=== PATIENT | female | born 1950 | race African-American/Black ===

== ENCOUNTER 2025-01-25 00:33 | Inpatient (IN) | payer MEDICARE, MEDICAID ==
[2025-01-25] VITALS (18 sets, daily range): BP systolic 129–187; BP diastolic 65–111; PULSE 82–101; RESP 11–23; TEMP 36.8–37.2; O2SAT 96–99
[~2025-01-25] VITALS: Ht 162.6 cm; Wt 149.4 kg
[2025-01-25] MEDS: ALBUTEROL (0.083%) 2.5MG/3ML NEB HHN SCH (00:46)
[2025-01-25] MEDS: IPRATROPIUM BROMIDE (0.02%) 0.5MG/2.5ML NEB HHN SCH (00:46)
[2025-01-25 00:58] LABS: BASOPHILS % 1.8 % (0.0-2.0); EOSINOPHILS % 4.1 % (0.0-5.0); HEMATOCRIT. 34.4 % (36.0-48.0); HEMOGLOBIN. 11.0 g/dL (12.0-16.0); LYMPHOCYTES % 60.2 % (20.0-50.0); MEAN PLATELET VOLUME 9.6 fl (7.4-10.4); MONOCYTES % 8.1 % (2.0-8.0); NEUTROPHILS % 25.8 % (40.0-76.0); PLATELET 301 x1000/uL (130-400); RED BLOOD CELL COUNT 4.34 mill/uL (4.2-5.4); RED CELL DISTRIBUTION WIDTH 15.9 % (11.6-14.6)
[2025-01-25 01:10] LABS: BG BASE EXCESS -4.9 mmol/L (-2.0-3.0); BG CARBOXYHEMOGLOBIN 0.1 % (0.5-1.5); BG DEOXYHEMOGLOBIN 0.3 % (0.0-5.0); BG FRACTION INSPIRED OXYGEN 40; BG HCO3 ACT 23.0 mmol/L (21.0-28.0); BG METHEMOGLOBIN 0.3 % (0.5-1.5); BG OXYGEN SATURATION 99.7 % (94.0-98.0); BG OXYHEMOGLOBIN 99.3 % (94.0-98.0); BG PCO2 56.4 mmHg (32.0-45.0); BG PH 7.229 (7.350-7.450); BG PO2 262.5 mmHg (83.0-108.0); BG SAMPLE SITE RIGHT RADIAL; BG TOTAL HEMOGLOBIN 11.3 g/dL (12.0-16.0); BG VENT MODE MASK - BIPAP; BG VENT RATE 16.0 set
[2025-01-25 01:15] LABS: CREATININE 1.8 mg/dL (0.6-1.0); ETHANOL BLOOD < 10 mg/dL (<10); UREA NITROGEN BLOOD 18 mg/dL (9-23)
[2025-01-25 01:17] LABS: ASPARTATE AMINOTRANSFERASE 28 IU/L (<34); BILIRUBIN DIRECT 0.1 mg/dL (<=3.0); BILIRUBIN TOTAL 0.3 mg/dL (0.1-1.0); PROTEIN TOTAL 7.4 g/dL (6.0-8.3); TROPONIN I HIGH SENSITIVITY 172 ng/L (3.0-34)
[2025-01-25] MEDS: METHYLPREDNISOLONE SOD SUCC 125MG/2ML (ACT-O-VIAL) IV ONE (01:23)
[2025-01-25] MEDS: MAGNESIUM 2 G PREMIX 50 ML IV ONE (01:23)
[2025-01-25] MEDS: SODIUM CHLORIDE 0.9% 1,000 ML IV ONE (01:23)
[2025-01-25 01:35] LABS: INR 0.9
[2025-01-25] MEDS ORDERED: ONDANSETRON HCL 4MG/2ML INJ IV PRN (03:15)
[2025-01-25] MEDS ORDERED: ACETAMINOPHEN 325MG TABLET PO PRN (03:15)
[2025-01-25] MEDS ORDERED: IPRATROPIUM/ALBUTEROL 0.5-3(2.5)MG/3ML NEB HHN PRN (03:15)
[2025-01-25] MEDS ORDERED: DOCUSATE SODIUM 100MG CAPSULE PO PRN (03:15)
[2025-01-25] MEDS: HYDRALAZINE 20MG/ML VIAL IV NR (03:24)
[2025-01-25] MEDS: SODIUM CHLORIDE 0.45% 1,000 ML IV SCH (03:35)
[2025-01-25] MEDS ORDERED: CLON0.1T PO (04:16)
[2025-01-25] MEDS ORDERED: CARV3.1242 PO (04:16)
[2025-01-25] MEDS: CLONIDINE 0.1MG TABLET PO PRN (05:42)
[2025-01-25] MEDS: IPRATROPIUM/ALBUTEROL 0.5-3(2.5)MG/3ML NEB HHN SCH (08:09)
[2025-01-25] MEDS: PANTOPRAZOLE 40MG DR TABLET PO SCH (08:55)
[2025-01-25] MEDS: CLONIDINE 0.1MG TABLET PO SCH (08:56)
[2025-01-25] MEDS: AMLODIPINE 10MG TABLET PO SCH (08:56)
[2025-01-25 09:45] LABS: TROPONIN I HIGH SENSITIVITY 217 ng/L (3.0-34)
[2025-01-25 09:48] LABS: FOLIC ACID (FOLATE) SERUM 13.96 ng/mL (>5.38)
[2025-01-25 09:49] LABS: VITAMIN B12 SERUM 601 pg/mL (211-911)
[2025-01-25] MEDS ORDERED: HYDRALAZINE 20MG/ML VIAL IV SCH (12:00)
[2025-01-25] MEDS: FUROSEMIDE 40MG/4ML VIAL IVP SCH (12:22)
[2025-01-25] MEDS: HYDRALAZINE HCL 50MG TABLET PO SCH ×2 (12:22→14:18)
[2025-01-25] MEDS ORDERED: HYDRALAZINE HCL 100MG TABLET PO SCH (14:00)
[2025-01-25] MEDS: FERROUS SULFATE 325MG TABLET PO SCH (14:18)
[2025-01-25 17:32] LABS: CLARITY URINE CLEAR (CLEAR); COLOR URINE YELLOW (YELLOW); GLUCOSE URINE NEGATIVE (NEGATIVE); KETONES URINE NEGATIVE (NEGATIVE); LEUKOCYTE ESTERASE URINE NEGATIVE (NEGATIVE); NITRITE URINE NEGATIVE (NEGATIVE); OCCULT BLOOD URINE NEGATIVE (NEGATIVE); PH URINE 5.5 (4.5-8.0); PROTEIN URINE NEGATIVE (NEGATIVE); SPECIFIC GRAVITY URINE 1.007 (1.005-1.030); UROBILINOGEN URINE 0.2 E.U./dL (0.2-1.0)
[2025-01-25 17:48] LABS: *AMPHETAMINES SCREEN URINE NEGATIVE (NEGATIVE); *BARBITURATES SCREEN URINE NEGATIVE (NEGATIVE); *BENZODIAZEPINES SCREEN URINE NEGATIVE (NEGATIVE); *COCAINE SCREEN URINE NEGATIVE (NEGATIVE); CANNABINOID URINE SCREEN NEGATIVE (NEGATIVE); METHADONE URINE SCREEN NEGATIVE (NEGATIVE); OPIATES URINE SCREEN NEGATIVE (NEGATIVE); PHENCYCLIDINE URINE SCREEN NEGATIVE (NEGATIVE)
[2025-01-25 17:49] LABS: ECSTASY MDMA SCREEN URINE NEGATIVE (NEGATIVE)
[2025-01-25] MEDS: METHYLPREDNISOLONE SOD SUCC 125MG/2ML (ACT-O-VIAL) IV SCH (21:30)
[2025-01-26] VITALS (12 sets, daily range): BP systolic 152–185; BP diastolic 67–95; PULSE 85–114; RESP 15–22; TEMP 36.6–37.1; O2SAT 94–98
[2025-01-26] MEDS ORDERED: METHYLPREDNISOLONE SOD SUCC 40MG/ML (ACT-O-VIAL) IV SCH (01:00)
[2025-01-26] MEDS: GUAIFENESIN 200MG/10ML SUGAR FREE UDC PO PRN (03:32)
[2025-01-26] MEDS: ACETAMINOPHEN 325MG TABLET PO PRN (10:04)
[2025-01-26] MEDS: HYDRALAZINE 20MG/ML VIAL IV PRN (10:05)
[2025-01-26 10:58] LABS: HEMATOCRIT. 34.8 % (36.0-48.0); HEMOGLOBIN. 10.9 g/dL (12.0-16.0); RED BLOOD CELL COUNT 4.39 mill/uL (4.2-5.4); RED CELL DISTRIBUTION WIDTH 15.8 % (11.6-14.6)
[2025-01-26 11:24] LABS: *AMPHETAMINES SCREEN URINE NEGATIVE (NEGATIVE)
[2025-01-26 11:25] LABS: *BARBITURATES SCREEN URINE NEGATIVE (NEGATIVE); *BENZODIAZEPINES SCREEN URINE NEGATIVE (NEGATIVE); *COCAINE SCREEN URINE NEGATIVE (NEGATIVE); CANNABINOID URINE SCREEN NEGATIVE (NEGATIVE); ECSTASY MDMA SCREEN URINE NEGATIVE (NEGATIVE); METHADONE URINE SCREEN NEGATIVE (NEGATIVE); OPIATES URINE SCREEN NEGATIVE (NEGATIVE); PHENCYCLIDINE URINE SCREEN NEGATIVE (NEGATIVE)
[2025-01-26 11:27] LABS: TRIGLYCERIDE 69.0 mg/dL (0-150)
[2025-01-26 11:28] LABS: LDL CHOLESTEROL 157.0 mg/dL (5-100)
[2025-01-26 11:31] LABS: T4 FREE 0.95 ng/dL (0.89-1.76)
[2025-01-26 12:05] LABS: BAND% 12.0 % (1.0-6.0); LYMPHOCYTES % MANUAL 15.0 % (20.0-60.0); MONOCYTES % MANUAL 1.0 % (2.0-8.0); NEUTROPHILS % MANUAL 72.0 % (45.0-75.0)
[2025-01-26 12:06] LABS: PLATELET ESTIMATE NORMAL
[2025-01-26 12:07] LABS: PLATELET 256 x1000/uL (130-400)
[2025-01-26] MEDS: HYDRALAZINE HCL 25MG TABLET PO SCH (13:24)
[2025-01-26] MEDS ORDERED: CEFTRIAXONE 1GM/50ML 50 ML IV SCH (15:30)
[2025-01-26] MEDS: PANTOPRAZOLE SODIUM 40 MG/VIAL IV ONE (16:14)
[2025-01-26] MEDS: FUROSEMIDE 40MG/4ML VIAL IVP SCH (16:14)
[2025-01-26] MEDS: ENOXAPARIN 40MG/0.4ML SYR SUBCUT SCH (16:15)
[2025-01-26] MEDS ORDERED: AZITHROMYCIN 500MG/250ML 250 ML IV SCH (16:30)
[2025-01-26] MEDS: CEFTRIAXONE 1GM/50ML 50 ML IV SCH (18:28)
[2025-01-26 18:56] LABS: HEMATOCRIT. 34.1 % (36.0-48.0); HEMOGLOBIN. 11.1 g/dL (12.0-16.0); MEAN PLATELET VOLUME 8.9 fl (7.4-10.4); PLATELET 291 x1000/uL (130-400); RED BLOOD CELL COUNT 4.43 mill/uL (4.2-5.4); RED CELL DISTRIBUTION WIDTH 15.2 % (11.6-14.6)
[2025-01-26 19:12] LABS: CREATININE 1.9 mg/dL (0.6-1.0); UREA NITROGEN BLOOD 31.0 mg/dL (9-23)
[2025-01-26 19:16] LABS: TROPONIN I HIGH SENSITIVITY 211.0 ng/L (3.0-34)
[2025-01-26] MEDS: AZITHROMYCIN 500MG/250ML 250 ML IV SCH (20:01)
[2025-01-26 20:20] LABS: BAND% 2.0 % (1.0-6.0); LYMPHOCYTES % MANUAL 14.0 % (20.0-60.0); MONOCYTES % MANUAL 1.0 % (2.0-8.0); NEUTROPHILS % MANUAL 83.0 % (45.0-75.0); PLATELET ESTIMATE NORMAL
[2025-01-26] MEDS: PANTOPRAZOLE SODIUM 40 MG/VIAL IV SCH (21:00)
[2025-01-26 22:16] LABS: TROPONIN I HIGH SENSITIVITY 227 ng/L (3.0-34)
[2025-01-27] VITALS (13 sets, daily range): BP systolic 100–182; BP diastolic 51–100; PULSE 87–113; RESP 14–22; TEMP 36.4–37.2; O2SAT 93–99
[2025-01-27 07:04] LABS: BASOPHILS % 0.1 % (0.0-2.0); EOSINOPHILS % 0.0 % (0.0-5.0); HEMATOCRIT. 32.5 % (36.0-48.0); HEMOGLOBIN. 10.4 g/dL (12.0-16.0); LYMPHOCYTES % 10.0 % (20.0-50.0); MEAN PLATELET VOLUME 8.8 fl (7.4-10.4); MONOCYTES % 5.8 % (2.0-8.0); NEUTROPHILS % 84.1 % (40.0-76.0); PLATELET 284 x1000/uL (130-400); RED BLOOD CELL COUNT 4.23 mill/uL (4.2-5.4); RED CELL DISTRIBUTION WIDTH 15.2 % (11.6-14.6)
[2025-01-27 07:22] LABS: CREATININE 1.9 mg/dL (0.6-1.0); UREA NITROGEN BLOOD 39.0 mg/dL (9-23)
[2025-01-27 07:58] LABS: TROPONIN I HIGH SENSITIVITY 228.0 ng/L (3.0-34)
[2025-01-27] MEDS ORDERED: LIDOCAINE HCL 1% 10 MG/ML 10ML VIAL ONE (08:27)
[2025-01-27] MEDS: IPRATROPIUM/ALBUTEROL 0.5-3(2.5)MG/3ML NEB HHN SCH (08:49)
[2025-01-27] MEDS: FUROSEMIDE 40MG TABLET PO SCH (10:53)
[2025-01-27] MEDS: HYDRALAZINE HCL 100MG TABLET PO SCH (13:38)
[2025-01-27] MEDS: CLONIDINE 0.1MG TABLET PO SCH (13:38)
[2025-01-27 18:16] LABS: TROPONIN I HIGH SENSITIVITY 224 ng/L (3.0-34)
[2025-01-27] MEDS: METHYLPREDNISOLONE SOD SUCC 40MG/ML (ACT-O-VIAL) IV SCH (21:58)
[2025-01-28] VITALS (10 sets, daily range): BP systolic 110–174; BP diastolic 47–96; PULSE 89–110; RESP 15–22; TEMP 36.4–37.1; O2SAT 90–99
[2025-01-28] MEDS ORDERED: IPRATROPIUM BROMIDE (0.02%) 0.5MG/2.5ML NEB HHN PRN (08:30)
[2025-01-28] MEDS: FLUTICASONE/VILANTEROL 200-25 BLST.W.DEV ORI SCH (08:33)
[2025-01-28] MEDS: IPRATROPIUM BROMIDE (0.02%) 0.5MG/2.5ML NEB HHN SCH (09:32)
[2025-01-28] MEDS ORDERED: KETOROLAC 30MG/ML VIAL IV NR (11:30)
[2025-01-28] MEDS ORDERED: AMLO10TA80 PO (14:55)
[2025-01-28] MEDS ORDERED: FLUT1BLS3 INH (14:55)
[2025-01-28] MEDS ORDERED: FURO20TA4 PO (14:55)
[2025-01-28] MEDS ORDERED: HYDR100T31 PO (14:55)
[2025-01-28] MEDS ORDERED: AMOX1TAB16 MT (14:55)
[2025-01-28] MEDS ORDERED: NEBI5TAB9 PO (14:55)
[2025-01-28] MEDS ORDERED: PRED10TA PO (14:55)
[2025-01-28] MEDS ORDERED: TOPUD PO (14:55)
[2025-01-28] MEDS ORDERED: FERR-63 PO (14:55)
[2025-01-28] MEDS ORDERED: DEXTL PO (14:55)
[2025-01-28] MEDS ORDERED: LIP40 PO (14:55)
[2025-01-28] MEDS: PREDNISONE 10MG TABLET PO SCH (17:59)
[2025-01-28] MEDS ORDERED: NEBIVOLOL HCL 5 MG TABLET PO SCH (21:00)
[2025-01-28] MEDS ORDERED: CARVEDILOL 3.125 MG TABLET PO SCH (21:00)
[2025-01-28] MEDS: CLONIDINE 0.1MG TABLET PO SCH (21:41)
[2025-01-28] MEDS: HYDRALAZINE HCL 100MG TABLET PO SCH (21:41)
[2025-01-28] MEDS: ATORVASTATIN CALCIUM 40MG TABLET PO SCH (21:41)
[2025-01-29] MEDS ORDERED: FUROSEMIDE 20MG TABLET PO SCH (09:00)
== END 2025-01-28 22:35 | disposition home or self-care (01) | DRG 280 ==
LOC: EDBD 00:33 → ER 00:33 → 5EST 01:48 → EDBD 01:48 → EDBEDREQTM 01:54 → EDBEDREQ 01:54 → ENRESERV 01:56 → 5EST 03:08 → 8WST 01-28 13:34
PROVIDERS: ADMIT Hospitalist; ATTEND Hospitalist
PROC: 5A09357 Assistance with Respiratory Ventilation, Less than 24 Consecutive Hours, Continuous Positive Airway Pressure (ICD-10-PCS; principal; 2025-01-25)
PROC: 5A09357 Assistance with Respiratory Ventilation, Less than 24 Consecutive Hours, Continuous Positive Airway Pressure (ICD-10-PCS; 2025-01-26)
PROC: 02HV33Z Insertion of Infusion Device into Superior Vena Cava, Percutaneous Approach (ICD-10-PCS; 2025-01-27)
PROC: B5181ZA Fluoroscopy of Superior Vena Cava using Low Osmolar Contrast, Guidance (ICD-10-PCS; 2025-01-27)
PROC: B548ZZA Ultrasonography of Superior Vena Cava, Guidance (ICD-10-PCS; 2025-01-27)
DX: I13.0 Hypertensive heart and chronic kidney disease with heart failure and stage 1 through stage 4 chronic kidney disease, or unspecified chronic kidney disease (principal); I50.33 Acute on chronic diastolic (congestive) heart failure; I21.A1 Myocardial infarction type 2; J96.01 Acute respiratory failure with hypoxia; J96.02 Acute respiratory failure with hypercapnia; J44.1 Chronic obstructive pulmonary disease with (acute) exacerbation; E87.4 Mixed disorder of acid-base balance; E66.2 Morbid (severe) obesity with alveolar hypoventilation; N17.9 Acute kidney failure, unspecified; Z68.43 Body mass index [BMI] 50.0-59.9, adult; J45.901 Unspecified asthma with (acute) exacerbation; S80.822A Blister (nonthermal), left lower leg, initial encounter; D50.9 Iron deficiency anemia, unspecified; J32.9 Chronic sinusitis, unspecified; N18.9 Chronic kidney disease, unspecified; X58.XXXA Exposure to other specified factors, initial encounter; E78.5 Hyperlipidemia, unspecified; F17.210 Nicotine dependence, cigarettes, uncomplicated; Z79.899 Other long term (current) drug therapy; Y93.89 Activity, other specified; Y92.89 Other specified places as the place of occurrence of the external cause; Y99.8 Other external cause status; Z79.82 Long term (current) use of aspirin
CPT/HCPCS: 36415; 36573; 36600; 71045; 76604; 80048; 80061; 80076; 80305; 80320; 81003; 82375; 82607; 82746; 82805; 83540; 83550; 83605; 83735; 83880; 84145; 84439; 84443; 84481; 84484; 85025; 87070; 93005; 93306; 93970; 94070; 94640; 94660; 94664; 97110; 97162; 97166; 97530; 99291; A4606; C1725; C1769; J0360; J0456; J0696; J1650; J1938; J2003; J2470; J2919; J3475; J7030; J7512; G0480

== ENCOUNTER 2025-04-13 17:45 | Inpatient (IN) | payer MEDICARE, MEDICAID ==
[~2025-04-13] VITALS: Ht 152.4 cm; Wt 139.3 kg
[~2025-04-13 17:45] MED LIST: AMLO10TA80 PO; AMOX1TAB16 MT; DEXTL PO; FERR-63 PO; FLUT1BLS3 INH; FURO20TA4 PO; HYDR100T31 PO; LIP40 PO; NEBI5TAB9 PO; PRED10TA PO; TOPUD PO
[2025-04-13 17:50] VITALS: BP 152/72; PULSE 69; RESP 18; TEMP 36.7; O2SAT 98
[2025-04-13] MEDS ORDERED: DIPHENHYDRAMINE 25MG CAPSULE PO PRN (18:15)
[2025-04-13] MEDS ORDERED: DEXTROSE 50% WATER 50ML SYRINGE IV PRN (18:15)
[2025-04-13] MEDS ORDERED: ACETAMINOPHEN 325MG TABLET PO PRN (18:15)
[2025-04-13] MEDS ORDERED: ONDANSETRON 4MG ODT PO PRN (18:15)
[2025-04-13 19:00] VITALS: BP 135/62; PULSE 68; RESP 20; TEMP 36.2512
[2025-04-13] MEDS: CLONIDINE 0.1MG TABLET PO SCH (21:00)
[2025-04-13] MEDS: NEBIVOLOL HCL 5 MG TABLET PO SCH (22:34)
[2025-04-13] MEDS: HYDRALAZINE HCL 100MG TABLET PO SCH (22:35)
[2025-04-14 02:41] VITALS: PULSE 76; RESP 20; O2SAT 97
[2025-04-14] MEDS: IPRATROPIUM/ALBUTEROL 0.5-3(2.5)MG/3ML NEB HHN SCH ×2 (02:41→15:58)
[2025-04-14 06:17] LABS: BASOPHILS % 0.5 % (0.0-2.0); EOSINOPHILS % 3.1 % (0.0-5.0); HEMATOCRIT. 28.7 % (36.0-48.0); HEMOGLOBIN. 9.1 g/dL (12.0-16.0); LYMPHOCYTES % 15.2 % (20.0-50.0); MEAN PLATELET VOLUME 8.5 fl (7.4-10.4); MONOCYTES % 12.5 % (2.0-8.0); NEUTROPHILS % 68.7 % (40.0-76.0); PLATELET 193 x1000/uL (130-400); RED BLOOD CELL COUNT 3.73 mill/uL (4.2-5.4); RED CELL DISTRIBUTION WIDTH 16.4 % (11.6-14.6)
[2025-04-14 06:26] LABS: CREATININE 2.0 mg/dL (0.6-1.0); UREA NITROGEN BLOOD 35 mg/dL (9-23)
[2025-04-14 06:27] LABS: ASPARTATE AMINOTRANSFERASE 8 IU/L (<34)
[2025-04-14 06:28] LABS: BILIRUBIN TOTAL 0.5 mg/dL (0.1-1.0); PROTEIN TOTAL 6.3 g/dL (6.0-8.3)
[2025-04-14 06:35] LABS: FOLIC ACID (FOLATE) SERUM 8.87 ng/mL (>5.38)
[2025-04-14 06:36] LABS: VITAMIN B12 SERUM 300 pg/mL (211-911)
[2025-04-14] MEDS: PANTOPRAZOLE 40MG DR TABLET PO SCH (07:41)
[2025-04-14] MEDS: SODIUM CHLORIDE 0.9% 3ML FLUSH IVF SCH (07:42)
[2025-04-14 08:00] VITALS: BP 153/64; PULSE 74; RESP 16; TEMP 37; O2SAT 98
[2025-04-14] MEDS: FUROSEMIDE 40MG TABLET PO SCH (08:54)
[2025-04-14] MEDS: BUDESONIDE 0.5MG/2ML NEB HHN SCH (10:20)
[2025-04-14 10:21] VITALS: PULSE 86; RESP 20; O2SAT 98
[2025-04-14] MEDS: CYANOCOBALAMIN 1000MCG/ML VIAL IM NR (10:56)
[2025-04-14] MEDS ORDERED: IPRATROPIUM/ALBUTEROL 0.5-3(2.5)MG/3ML NEB HHN PRN (11:45)
[2025-04-14] MEDS: GUAIFENESIN 600MG ER TABLET PO SCH (14:12)
[2025-04-14] MEDS: CYCLOBENZAPRINE 10MG TABLET PO PRN (14:14)
[2025-04-14 15:59] VITALS: PULSE 68; RESP 20; O2SAT 98
[2025-04-14 16:30] LABS: CLARITY URINE CLEAR (CLEAR); COLOR URINE YELLOW (YELLOW); GLUCOSE URINE NEGATIVE (NEGATIVE); KETONES URINE NEGATIVE (NEGATIVE); LEUKOCYTE ESTERASE URINE NEGATIVE (NEGATIVE); NITRITE URINE NEGATIVE (NEGATIVE); OCCULT BLOOD URINE NEGATIVE (NEGATIVE); PH URINE 6.0 (4.5-8.0); PROTEIN URINE NEGATIVE (NEGATIVE); SPECIFIC GRAVITY URINE 1.014 (1.005-1.030); UROBILINOGEN URINE 0.2 E.U./dL (0.2-1.0)
[2025-04-14] MEDS ORDERED: CYANOCOBALAMIN 1000MCG/ML VIAL IM SCH (18:00)
[2025-04-14 20:00] VITALS: BP 151/66; PULSE 74; RESP 18; TEMP 36.8; O2SAT 100
[2025-04-15 05:30] VITALS: BP 133/61; PULSE 67; RESP 16; TEMP 36.7; O2SAT 98
[2025-04-15 07:53] VITALS: PULSE 72; RESP 20
[2025-04-15] MEDS: CYANOCOBALAMIN 1000MCG/ML VIAL IM SCH (09:42)
[2025-04-15] MEDS: FERROUS SULFATE 325MG TABLET PO SCH (09:43)
[2025-04-15] MEDS: POLYETHYLENE GLYCOL 3350 (17GM) 1 DOSE PACK PO SCH (09:43)
[2025-04-15 20:00] VITALS: BP 126/52; PULSE 60; RESP 18; TEMP 36.4; O2SAT 99
[2025-04-15 20:15] VITALS: PULSE 74; RESP 21; O2SAT 97
[2025-04-16 01:50] VITALS: PULSE 88; RESP 20; O2SAT 98
[2025-04-16 07:58] VITALS: PULSE 80; RESP 20
[2025-04-16 08:00] VITALS: BP 129/54; PULSE 79; RESP 18; TEMP 36.5; O2SAT 99
[2025-04-16] MEDS: ERGOCALCIFEROL 50000UNITS CAPSULE PO SCH (08:21)
[2025-04-16] MEDS: ACETAMINOPHEN 325MG TABLET PO PRN (16:56)
[2025-04-16 20:00] VITALS: BP 120/45; PULSE 60; RESP 20; TEMP 36.6; O2SAT 100
[2025-04-16] MEDS: ENOXAPARIN 40MG/0.4ML SYR SUBCUT SCH (21:26)
[2025-04-16 21:53] VITALS: PULSE 53; RESP 18; O2SAT 96
[2025-04-17 03:01] VITALS: PULSE 63; RESP 18; O2SAT 96
[2025-04-17 07:13] VITALS: PULSE 70; RESP 20
[2025-04-17 08:00] VITALS: BP 125/56; PULSE 77; RESP 18; TEMP 36.6; O2SAT 99
[2025-04-17 12:51] LABS: BASOPHILS % 0.5 % (0.0-2.0); EOSINOPHILS % 2.9 % (0.0-5.0); HEMATOCRIT. 28.9 % (36.0-48.0); HEMOGLOBIN. 9.1 g/dL (12.0-16.0); LYMPHOCYTES % 12.5 % (20.0-50.0); MEAN PLATELET VOLUME 8.5 fl (7.4-10.4); MONOCYTES % 10.2 % (2.0-8.0); NEUTROPHILS % 73.9 % (40.0-76.0); PLATELET 209 x1000/uL (130-400); RED BLOOD CELL COUNT 3.71 mill/uL (4.2-5.4); RED CELL DISTRIBUTION WIDTH 17.1 % (11.6-14.6)
[2025-04-17 13:11] LABS: CREATININE 1.9 mg/dL (0.6-1.0); UREA NITROGEN BLOOD 42.0 mg/dL (9-23)
[2025-04-17 20:00] VITALS: BP 126/61; PULSE 64; RESP 20; TEMP 36.4; O2SAT 99
[2025-04-17 22:46] VITALS: PULSE 62; RESP 18; O2SAT 94
[2025-04-18 06:41] VITALS: PULSE 64; RESP 18
[2025-04-18 08:00] VITALS: BP 150/59; PULSE 66; RESP 20; TEMP 36.3; O2SAT 99
[2025-04-18 08:09] VITALS: PULSE 80; RESP 16; O2SAT 96
[2025-04-18 11:21] LABS: BASOPHILS % 0.7 % (0.0-2.0); EOSINOPHILS % 2.9 % (0.0-5.0); HEMATOCRIT. 27.8 % (36.0-48.0); HEMOGLOBIN. 9.0 g/dL (12.0-16.0); LYMPHOCYTES % 11.1 % (20.0-50.0); MEAN PLATELET VOLUME 7.7 fl (7.4-10.4); MONOCYTES % 10.1 % (2.0-8.0); NEUTROPHILS % 75.2 % (40.0-76.0); PLATELET 224 x1000/uL (130-400); RED BLOOD CELL COUNT 3.64 mill/uL (4.2-5.4); RED CELL DISTRIBUTION WIDTH 17.0 % (11.6-14.6)
[2025-04-18 11:47] LABS: CREATININE 1.9 mg/dL (0.6-1.0); UREA NITROGEN BLOOD 46.0 mg/dL (9-23)
[2025-04-18 14:15] VITALS: PULSE 78; RESP 18; O2SAT 98
[2025-04-18] MEDS: TRAMADOL 50MG TABLET PO PRN (14:33)
[2025-04-18 20:00] VITALS: BP 126/55; PULSE 60; RESP 17; TEMP 36.1; O2SAT 99
[2025-04-18 20:16] VITALS: PULSE 77; RESP 18; O2SAT 98
[2025-04-19 08:00] VITALS: BP 140/69; PULSE 61; RESP 18; TEMP 37.3; O2SAT 99
[2025-04-19 10:04] VITALS: PULSE 79; RESP 18; O2SAT 97
[2025-04-19] MEDS ORDERED: NALOXONE HCL 0.4MG/ML VIAL IV PRN (16:00)
[2025-04-19 20:00] VITALS: BP 134/42; PULSE 56; RESP 17; TEMP 36.4; O2SAT 100
[2025-04-19] MEDS: IPRATROPIUM/ALBUTEROL 0.5-3(2.5)MG/3ML NEB HHN SCH (21:04)
[2025-04-19 21:05] VITALS: PULSE 80; RESP 18; O2SAT 95
[2025-04-20 02:23] VITALS: PULSE 80; RESP 18
[2025-04-20 08:00] VITALS: BP 132/46; PULSE 66; RESP 18; TEMP 36.4; O2SAT 97
[2025-04-20 09:30] VITALS: PULSE 79; RESP 20
[2025-04-20 15:25] VITALS: PULSE 79; RESP 20
[2025-04-20 20:00] VITALS: BP 102/64; PULSE 61; RESP 19; TEMP 36.3; O2SAT 95
[2025-04-20 22:38] VITALS: PULSE 81; RESP 18; O2SAT 97
[2025-04-21 05:01] VITALS: PULSE 86; RESP 19; O2SAT 98
[2025-04-21 08:10] VITALS: BP 137/83; PULSE 69; RESP 18; TEMP 36.6
[2025-04-21 19:43] VITALS: PULSE 80; RESP 18; O2SAT 97
[2025-04-21 20:00] VITALS: BP 152/60; PULSE 62; RESP 19; TEMP 36.7; O2SAT 100
[2025-04-22 08:05] VITALS: PULSE 68; RESP 18
[2025-04-22 09:42] VITALS: BP 140/55; PULSE 75
[2025-04-22] MEDS: FAMOTIDINE 20MG TABLET PO SCH (09:43)
[2025-04-22] MEDS: ENOXAPARIN 40MG/0.4ML SYR SUBCUT SCH (09:46)
[2025-04-22 10:17] LABS: BASOPHILS % 0.5 % (0.0-2.0); EOSINOPHILS % 2.7 % (0.0-5.0); HEMATOCRIT. 30.5 % (36.0-48.0); HEMOGLOBIN. 9.5 g/dL (12.0-16.0); LYMPHOCYTES % 24.3 % (20.0-50.0); MEAN PLATELET VOLUME 8.6 fl (7.4-10.4); MONOCYTES % 7.5 % (2.0-8.0); NEUTROPHILS % 65.0 % (40.0-76.0); PLATELET 286 x1000/uL (130-400); RED BLOOD CELL COUNT 3.90 mill/uL (4.2-5.4); RED CELL DISTRIBUTION WIDTH 16.6 % (11.6-14.6)
[2025-04-22 10:27] LABS: CREATININE 2.0 mg/dL (0.6-1.0); UREA NITROGEN BLOOD 43.0 mg/dL (9-23)
[2025-04-22 15:46] VITALS: BP 150/65; PULSE 56
[2025-04-22 20:00] VITALS: BP 125/44; PULSE 60; RESP 18; TEMP 36.5; O2SAT 99
[2025-04-23 02:34] VITALS: PULSE 62; RESP 18; O2SAT 97
[2025-04-23 08:00] VITALS: BP 143/50; PULSE 62; RESP 18; TEMP 36.1; O2SAT 97
[2025-04-23] MEDS ORDERED: HYDR100T31 PO (10:42)
[2025-04-23] MEDS ORDERED: CLON0.1T PO (10:42)
[2025-04-23] MEDS ORDERED: NEBI5TAB9 PO (10:42)
[2025-04-23] MEDS ORDERED: FERR-63 PO (10:42)
[2025-04-23] MEDS ORDERED: FURO40TA5 PO (10:42)
[2025-04-23 11:30] VITALS: BP 143/50; PULSE 62; RESP 18; TEMP 97.5
== END 2025-04-23 12:45 | disposition home health service (06) | DRG 70 ==
PROVIDERS: ADMIT Physical Medicine & Rehabilitation Spinal Cord Injury Medicine; ATTEND Internal Medicine
DX: G93.41 Metabolic encephalopathy (principal); I21.4 Non-ST elevation (NSTEMI) myocardial infarction; J96.21 Acute and chronic respiratory failure with hypoxia; J96.22 Acute and chronic respiratory failure with hypercapnia; J44.1 Chronic obstructive pulmonary disease with (acute) exacerbation; I13.0 Hypertensive heart and chronic kidney disease with heart failure and stage 1 through stage 4 chronic kidney disease, or unspecified chronic kidney disease; Z68.44 Body mass index [BMI] 60.0-69.9, adult; E66.2 Morbid (severe) obesity with alveolar hypoventilation; I16.1 Hypertensive emergency; J45.902 Unspecified asthma with status asthmaticus; N17.9 Acute kidney failure, unspecified; R53.81 Other malaise; I50.9 Heart failure, unspecified; G62.9 Polyneuropathy, unspecified; E66.01 Morbid (severe) obesity due to excess calories; E03.9 Hypothyroidism, unspecified; R26.9 Unspecified abnormalities of gait and mobility; D50.9 Iron deficiency anemia, unspecified; D72.829 Elevated white blood cell count, unspecified; E55.9 Vitamin D deficiency, unspecified; F17.200 Nicotine dependence, unspecified, uncomplicated; G47.33 Obstructive sleep apnea (adult) (pediatric); I25.10 Atherosclerotic heart disease of native coronary artery without angina pectoris; N18.9 Chronic kidney disease, unspecified; N28.1 Cyst of kidney, acquired; R09.89 Other specified symptoms and signs involving the circulatory and respiratory systems; R21 Rash and other nonspecific skin eruption; Z79.899 Other long term (current) drug therapy
CPT/HCPCS: 31720; 36415; 76770; 80048; 80053; 81003; 82140; 82306; 82607; 82728; 82746; 83036; 83540; 83550; 84134; 84443; 85025; 92523; 92610; 94003; 94070; 94640; 94664; 97110; 97112; 97116; 97162; 97166; 97530; 97535; 98960; A4606; J1650; J3420; J7626